=== PATIENT | female | born 1990 | race Caucasian/White ===

== ENCOUNTER 2018-09-21 19:30 | Outpatient (CLI) | payer BC | END 2018-09-21 19:31 | disposition home or self-care (01) | LOC: SLEEPLAB 19:30 | PROVIDERS: ATTEND Family Medicine | DX: G47.33 Obstructive sleep apnea (adult) (pediatric) (principal); R53.83 Other fatigue; R40.0 Somnolence; R06.83 Snoring; G47.11 Idiopathic hypersomnia with long sleep time | CPT/HCPCS: 95810 ==

== ENCOUNTER 2019-01-25 05:00 | Outpatient (CLI) | payer BC | END 2019-01-25 05:01 | disposition home or self-care (01) | LOC: SLEEPLAB 05:00 | PROVIDERS: ATTEND Internal Medicine Critical Care Medicine | DX: G47.419 Narcolepsy without cataplexy (principal) | CPT/HCPCS: 95805; 95810 ==

== ENCOUNTER 2019-09-22 10:28 | Outpatient (CLI) | payer BC ==
--- NOTE | 2019-09-22 13:59 | RAD ---
Hysterosalpingogram INDICATION: History of infertility and tubal ligation clips; verify occlusion of the tubes following placement tubal ligation clips in July 2018. The patient is on day 6 of the menstrual cycle. The patient has had a full 24 hour without vaginal spotting. Patient reports no possibility of pregna ncy and no active discharge. TECHNIQUE: Details concerning the procedure were discussed with the patient prior to proceeding with the examination. The patient verbalized understanding. All questions were answered. The patient was placed in lithotomy position on on the fluoroscopic machine. A sterile speculum was placed. The cervi x was identified. The cervix was then cleansed with Betadine solution. An internal valiente device was utilized to verify patency of the endocervical canal. Following this the HSG catheter was inserted in to the endometrial canal. The balloon was inflated. Fixation was verified prior to moving the patient cephalad on the fluoroscopy table. Upon positioning the patient underneath the image intensif ier, gentle retrograde opacification of the uterine cavity was performed. Early fill images and additional oblique images were obtained. Approximately 3 to 4 mL of contrast was instilled in total. Following completion of examination, the balloon was deflated and the catheter was removed. The speculum was removed. Patient tolerated the examination without difficulty. FINDINGS: Cancer Registry Coordinator images demonstrate bilateral tubal ligation clips within the lower pelvis. Early fill ing images demonstrated no intrauterine filling defect. There is opacification symmetrically within both fallopian tubes up to the tubal ligation clips. Early within the examination there was evidence of venous and lymphatic intravasation within the surrounding uterus. To verify tubal occlusion without additional contrast demonstration, oblique images were obtained. No definite contrast was see n projecting beyond the margins of the tubal ligation clips. IMPRESSION: 1. Bilateral tubal ligation clips with complete occlusion of the bilateral fallopian tube. 2. Venous and lymphatic intravasation during the examination. This can be seen in 6% patients undergo ing HSG. This is common in the setting of tubal occlusion. Transcribed Date/Time: 09/22/2019 2:12 PM
== END 2019-09-22 10:29 | disposition home or self-care (01) ==
LOC: RAD 10:28
PROVIDERS: ATTEND Obstetrics & Gynecology
DX: Z31.41 Encounter for fertility testing (principal); Z98.890 Other specified postprocedural states
CPT/HCPCS: 58340; 74740

== ENCOUNTER 2019-10-12 07:26 | Emergency (ER) | payer BC ==
[2019-10-12 08:20] LABS: #Basophils 0.1 thou/uL (0.0-0.2); #Eosinphils 0.1 thou/uL (0.0-0.7); #Lymphocytes 1.9 thou/uL (1.20-3.40); #Monocytes 0.6 thou/uL (0.11-0.59); #Neutrophils 4.8 thou/uL (1.40-6.50); %Basophils 0.8 % (0.0-1.0); %Eosinophils 1.5 % (0.0-10.0); %Lymphocytes 25.2 % (21.0-51.0); %Monocytes 8.1 % (0.0-10.0); %Neutrophils 64.4 % (42.0-75.0); Hemoglobin 14.5 g/dL (12.0-16.0); Mean Corpuscular HGB CONC 33.8 g/dL (32.0-36.0); Mean Corpuscular Hemoglobin 33.3 pg (27.0-31.0); Mean Corpuscular Volume 98.7 fL (78.0-98.0); Mean Platelet Volume 7.4 fL (7.4-10.4); Platelet Count 243 thou/uL (130-400); RBC Distribution Width 11.8 % (11.5-14.5); Red Blood Cell (RBC) Count 4.34 mill/uL (4.20-5.40); White Blood Cell (WBC) Count 7.5 thou/uL (4.8-10.8)
[2019-10-12 08:24] LABS: BHCG - Serum Negative (NEGATIVE); Pregs Control Background? CLEAR/WHITE (CLR/WHITE); Pregs Control Bar Appear? YES (CONTROL BAR)
[2019-10-12 08:37] LABS: ALT (SGPT) 18 U/L (8-55); AST (SGOT) 15 U/L (5-34); Alkaline Phosphatase 76 U/L (40-110); Anion Gap 9 mmol/L (10-20); BUN (Urea Nitrogen) 8 mg/dL (7.0-18.7); Bilirubin, Total 0.8 mg/dL (0.2-1.2); Calc. Creatinine Clearance 0 mL/min (70-130); Carbon Dioxide 29 mmol/L (22-29); Chloride 102 mmol/L (98-107); Estimated GFR-MDRD 76; Globulin 2.7 g/dL (2.4-3.5); Glucose 63 mg/dL (70-105); Lipase 18 U/L (8-78); Potassium 3.5 mmol/L (3.5-5.1); Protein, Total 7.7 g/dL (6.0-8.3); Sodium 136 mmol/L (136-145)
--- NOTE | 2019-10-12 08:59 | CT ---
CT Abdomen Pelvis W Con: 10/12/2019 8:30 AM CLINICAL INFORMATION: Right-sided abdominal pain since 2018. COMPARISON: None. TECHNIQUE: Multiple contiguous axial images were obtained and a CT of the abdomen and pelvis with IV contrast. Oral contrast was administered. Coronal and sagittal reformats were performed. FINDINGS: Lower Chest: within normal limits. Abdomen: Liver: within normal limits. Bile Ducts: Normal caliber. Gallbladder: Surgically absent Pancreas: within normal limits. Spleen: within normal limits. Adrenals: within normal limits. Kidneys: within normal limits. Pelvis: Reproductive Organs: No pelvic masses. Tubal ligation clips are seen. The patient recently ovulated f rom the left ovary. Ureters: within normal limits. Bladder: within normal limits. Peritoneum: No ascites or free air, no fluid collection. Bowel: Normal caliber. Normal appendix. Mesentery and Retroperitoneum: No enlarged mesenteric or retroperitoneal lymph nodes. Vessels: Normal. Abdominal Wall: within normal limits. Bones: Within normal limits IMPRESSION: No evidence of acute intraabdominal or pelvic abnormality.
[2019-10-12 09:00] LABS: Bilirubin Negative (Negative); Blood, Urine 1+ (Negative); Clarity Clear (Clear); Glucose, Urine (Dipstick) Normal (Negative); Leukocyte Negative Leu/uL (Negative); Nitrite Negative (Negative); Protein, Urine (Dipstick) 20 mg/dL (Neg-Trace); Transitional Epithelial 0-3 HPF (None Seen); Urobilinogen Normal mg/dL (Less than 2); WBC/HPF 0-3 HPF (0-3)
[2019-10-12 09:02] LABS: Bacteria/HPF 1+ HPF (None Seen)
[2019-10-12] MEDS ORDERED: Ketorolac Tromethamine 30 MG/ML VIAL ONE (09:37)
== END 2019-10-12 09:18 | disposition home or self-care (01) ==
LOC: ERS 07:26
DX: R10.31 Right lower quadrant pain (principal); R31.9 Hematuria, unspecified; E03.9 Hypothyroidism, unspecified; F41.9 Anxiety disorder, unspecified; F32.9 Major depressive disorder, single episode, unspecified; F17.210 Nicotine dependence, cigarettes, uncomplicated; Z79.899 Other long term (current) drug therapy
CPT/HCPCS: 74177; 80053; 81003; 81015; 83690; 84703; 85025; 96372; 96374; J0500; J1885